=== PATIENT | male | born 1965 | race African-American/Black ===

== ENCOUNTER 2019-03-28 08:00 | Inpatient (IN) | payer OTHER ==
[2019-03-26 13:58] VITALS: BMI 32.6
--- NOTE | 2019-04-22 11:21 | HP ---
CHIEF COMPLAINT: low back pain PCP:Dr. Nino HISTORY OF PRESENT ILLNESS: Patient is a 53 year old male with past medical history of HTN and sickle cell trait, presented due to chronic low back pain. As per patient, he started experiencing low back pain since he felt a "pop" in his lower back at work in 1998 and 2003. Since then, patient experienced intermittent low back pain, that usually resolves on its own without any medication. Five months ago, patient started experiencing worsening of his low back pain, with pain radiating down to his left leg. At other times, patient would experience numbness of the left leg. The pain became more severe and frequent that patient had difficulty ambulating for prolonged times. He was evaluated by neurosurgery, Dr. Finch, where imaging was done. Patient was seen by Dr. Nino for pre-op clearance in March, and patient is scheduled for surgery on 05/02/2019. Patient denies any recent illness. Denies fevers, chills, headache, dizziness, chest pain, SOB, abdominal pain, diarrhea, urinary symptoms. Recent Travel:denies PAST MEDICAL HISTORY: Hypertension Sickle cell trait PAST SURGICAL HISTORY: Cleft palate repair Social History: Smokin/2 ppd x >20 years Alcohol:denies Drugs: denies Family History: Father - of heart attack at 52yo Mother - at 36yo - ?TB/pneumonia, ?HIV Allergies banana Allergy (Verified 03/26/19 14:02) No Known Drug Allergies Allergy (Verified 03/26/19 14:02) HOME MEDICATIONS: Home Medications Medication Instructions Recorded Amlodipine Besylate 10 mg PO HS 03/26/19 REVIEW OF SYSTEMS CONSTITUTIONAL: Absent: fever, chills, diaphoresis, generalized weakness, malaise, loss of appetite, weight change HEENT: Absent: rhinorrhea, nasal congestion, throat pain, throat swelling, difficulty swallowing, mouth swelling, ear pain, eye pain, visual changes CARDIOVASCULAR: Absent: chest pain, syncope, palpitations, irregular heart rate, lightheadedness, peripheral edema RESPIRATORY: Absent: cough, shortness of breath, dyspnea with exertion, orthopnea, wheezing, stridor, hemoptysis GASTROINTESTINAL: Absent: abdominal pain, abdominal distension, nausea, vomiting, diarrhea, constipation, melena, hematochezia GENITOURINARY: Absent: dysuria, frequency, urgency, hesitancy, hematuria, flank pain, genital pain MUSCULOSKELETAL: Low back pain Absent: myalgia, arthralgia, joint swelling, neck pain SKIN: Absent: rash, itching, pallor HEMATOLOGIC/IMMUNOLOGIC: Absent: easy bleeding, easy bruising, lymphadenopathy, frequent infections ENDOCRINE: Absent: unexplained weight gain, unexplained weight loss, heat intolerance, cold intolerance NEUROLOGIC: numbness/pain of left leg Absent: headache, focal weakness or paresthesias, dizziness, unsteady gait, seizure, mental status changes, bladder or bowel incontinence PSYCHIATRIC: Absent: anxiety, depression, suicidal or homicidal ideation, hallucinations. PHYSICAL EXAMINATION GENERAL: Awake, alert, and fully oriented, in no acute distress. HEAD: Normal with no signs of trauma. EYES: PERRLA, EOMI, sclera anicteric, conjunctiva clear. EARS, NOSE, THROAT: Moist mucous membranes. NECK: Normal range of motion, supple LUNGS: Breath sounds equal, clear to auscultation bilaterally. HEART: Regular rate and rhythm, normal S1 and S2 ABDOMEN: Soft, nontender, not distended, normoactive bowel sounds. MUSCULOSKELETAL: Normal range of motion at all joints. LOWER EXTREMITIES: 2+ pulses, warm, well-perfused. No peripheral edema. NEUROLOGICAL: Cranial nerves II-XII grossly intact. Normal speech. Motor strength 5/5 on b/l UE,RLE, 4/5 LLE, decreased sensation on LLE>RLE. PSYCHIATRIC: Cooperative. Good eye contact. Appropriate mood and affect. SKIN: Warm, dry, normal turgor. ASSESSMENT/PLAN: Patient is a 53 year old male with past medical history of HTN and sickle cell trait, presented due to chronic low back pain. #Chronic Low Back pain -likely 2/2 Lumbar spondylosis -Scheduled for surgery on 05/02/2019 -Neurosurgery (Dr. Finch) on board #Dispo -to come back to [facility] for surgery Visit type - Emergency Visit Emergency Visit: No - New Patient This patient is new to me today: Yes Date on this admission: 04/22/19 - Critical Care Critical Care patient: No ATTENDING PHYSICIAN STATEMENT I saw and evaluated the patient. I reviewed the resident's note and discussed the case with the resident. I agree with the resident's findings and plan as documented. SUBJECTIVE: OBJECTIVE: ASSESSMENT AND PLAN:
[2019-05-02] MEDS ORDERED: ceFAZolin SODIUM 1 GM VIAL ONE ×2 (06:55→16:49)
[2019-05-02] MEDS ORDERED: CEFAZOLIN 2 GM/D5W 2 GM/50 ML ML IVPB ONE (07:00)
[2019-05-02] MEDS ORDERED: MIDAZOLAM HCL 2 MG/2 ML SINGLE DOSE VIAL ONE (07:44)
[2019-05-02] MEDS ORDERED: ROCURONIUM BROMIDE 50 MG/5 ML SYRINGE ONE ×2 (07:44→08:59)
[2019-05-02] MEDS ORDERED: morphine SULFATE/PF 0.5 MG/ML (2cc Syringe - QUVA) ONE (07:44)
[2019-05-02] MEDS ORDERED: PROPOFOL 20 ML ONE (07:44)
[2019-05-02] MEDS ORDERED: LIDOCAINE HCL/PF 2% SDV 5ML VIAL ONE (07:45)
--- NOTE | 2019-05-02 07:52 | HP ---
History & Physical Update - History History: No Change - Physical Physical: No Change - Assessment Assessment: No Change - Plan Plan: No Change
[2019-05-02] MEDS ORDERED: SODIUM CHLORIDE 0.9% P/F 10 ML VIAL IJ ONE ×2 (08:19→08:24)
[2019-05-02] MEDS ORDERED: DEXAMETHASONE SOD PHOSPHATE 4 MG/1 ML VIAL ONE (08:19)
[2019-05-02] MEDS ORDERED: ONDANSETRON 4 MG/2 ML VIAL ONE (08:19)
[2019-05-02] MEDS ORDERED: ceFAZolin SODIUM 1 GM VIAL IVPB ONE (08:23)
[2019-05-02] MEDS ORDERED: VANCOMYCIN 1,000 MG VIAL (RESTRICTED TO ID ONLY) ONE (08:23)
[2019-05-02] MEDS ORDERED: VANCOMYCIN 1,000 MG VIAL (RESTRICTED TO ID ONLY) IVPB ONE ×3 (08:25→10:57)
[2019-05-02] MEDS ORDERED: LIDOCAINE 1%/EPI 1:100000 (20 ML MULTI DOSE VIAL) IJ ONE (08:33)
[2019-05-02] MEDS ORDERED: GELATIN, ABSORBABLE 100 EACH SPONGE TP ONE (08:53)
[2019-05-02] MEDS ORDERED: THROMBIN (BOVINE) 5,000 UNIT VIAL TP ONE (08:53)
[2019-05-02] MEDS ORDERED: GENTAMICIN SO4 80 MG/2 ML VIAL IVPB ONE (09:19)
[2019-05-02] MEDS ORDERED: HYDROGEN PEROXIDE 473 ML PO ONE (09:19)
[2019-05-02] MEDS ORDERED: BACITRACIN 50,000 UNITS VIAL TP ONE ×3 (09:19→10:57)
[2019-05-02] MEDS ORDERED: GLYCOPYRROLATE 0.2 MG/1 ML VIAL ONE (10:25)
[2019-05-02] MEDS ORDERED: NEOSTIGMINE METHYLSULFATE 0.5 MG/1 ML - 10 ML MDV ONE (10:25)
[2019-05-02] MEDS ORDERED: BUPIVACAINE LIPOSOME/PF (EXPAREL) 266 MG/20 ML VIAL NR ONE ×2 (10:50)
[2019-05-02] MEDS ORDERED: BUPIVACAINE HCL/PF 0.5% (5 MG/ML) 30 ML VIAL IJ ONE ×2 (10:50)
[2019-05-02] MEDS ORDERED: ACETAMINOPHEN INJECTION 100 ML IVPB ONE (11:19)
[2019-05-02] MEDS ORDERED: METOPROLOL TARTRATE 5 MG/5 ML VIAL ONE (11:28)
[2019-05-02] MEDS ORDERED: morphine SULFATE/PF 0.5 MG/ML (2cc Syringe - QUVA) EP ONE (12:03)
[2019-05-02] MEDS ORDERED: ONDANSETRON 4 MG/2 ML VIAL IVPUSH PRN ×2 (12:03→12:08)
[2019-05-02] MEDS ORDERED: PROMETHAZINE HCL 25 MG/1 ML VIAL IVPB PRN (12:03)
[2019-05-02] MEDS ORDERED: DEXAMETHASONE SOD PHOSPHATE 4 MG/1 ML VIAL IVPUSH PRN (12:03)
[2019-05-02] MEDS ORDERED: LACTATED RINGERS SOLUTION 1,000 ML IV SCH (12:15)
[2019-05-02] MEDS ORDERED: HYDROmorphone *PCA* 10MG/50ML DISP.SYRIN PCA SCH (12:15)
[2019-05-02] MEDS ORDERED: HEPARIN NA (PORCINE) 5,000 UNITS/ML 1ML VIAL SQ SCH (12:15)
--- NOTE | 2019-05-02 12:24 | OP ---
Operative Note - Note: Operative Date: 05/02/19 Pre-Operative Diagnosis: lumbar stenosis, lumbar kyphosis Operation: lumbar L2 thru L3 and L3 thru L4 laminectomy/decompression transforaminal approach. Interbody CAGE placement L2-3 and L3-4, arthrodesis and posterior lumbar fusion Surgeon: Huy Finch Guidance Director: Susan Ferreira Anesthesiologist/EMPLOYMENT SPECIALIST: Constantin Barrios Estimated Blood Loss (mls): 110 Drains, Volume Out (mls): 180 (melgoza) Fluid Volume Replaced (mls): 1,500 Operative Report Dictated: Yes
[2019-05-02] MEDS ORDERED: CEFAZOLIN 1 GM in DEXTROSE 5%-WATER - 50 ML IVPB SCH (12:45)
[2019-05-02] MEDS ORDERED: HYDROmorphone *PCA* 10MG/50ML DISP.SYRIN ONE (12:53)
[2019-05-02] MEDS: DOCUSATE SODIUM 100 MG CAPSULE (FP) PO SCH ×2 (16:31→21:41)
[2019-05-02] MEDS: LACTATED RINGERS SOLUTION 1,000 ML/1,000 ML INFUS.BAG IV SCH (16:31)
[2019-05-02] MEDS: ACETAMINOPHEN 1000 MG/100 ML VIAL (NON FORMULARY) IVPB SCH ×2 (16:31→23:21)
[2019-05-02] MEDS ORDERED: DEXTROSE 5%-WATER - 50 ML IVPB ONE (16:49)
[2019-05-02] MEDS: CEFAZOLIN 1 GM in DEXTROSE 5%-WATER - 50 ML IVPB SCH (16:53)
[2019-05-02] MEDS ORDERED: CEFAZOLIN 1 GM/D5W 1 GM/50 ML BAG IVPB SCH (17:00)
[2019-05-02] MEDS: HEPARIN NA (PORCINE) 5,000 UNITS/ML 1ML VIAL SQ SCH (21:41)
[2019-05-02] MEDS ORDERED: amLODIPine BESYLATE 10 MG TABLET (FP) PO SCH (22:00)
[2019-05-03] MEDS ORDERED: DEXTROSE 5%-WATER - 50 ML IVPB ONE ×2 (01:39→10:50)
[2019-05-03] MEDS ORDERED: ceFAZolin SODIUM 1 GM VIAL ONE ×2 (01:39→10:50)
[2019-05-03] MEDS: CEFAZOLIN 1 GM in DEXTROSE 5%-WATER - 50 ML IVPB SCH ×2 (01:57→10:52)
[2019-05-03 05:37] VITALS: TEMP 98.5
[2019-05-03] MEDS: ACETAMINOPHEN 1000 MG/100 ML VIAL (NON FORMULARY) IVPB SCH (05:44)
[2019-05-03] MEDS: HEPARIN NA (PORCINE) 5,000 UNITS/ML 1ML VIAL SQ SCH ×2 (05:44→15:33)
[2019-05-03] MEDS: DOCUSATE SODIUM 100 MG CAPSULE (FP) PO SCH ×2 (05:45→15:33)
[2019-05-03 08:03] LABS: HEMATOCRIT 34.6 % (35.4-49); HEMOGLOBIN 12.2 GM/dL (11.7-16.9); MCH 30.2 pg (25.7-33.7); MCHC 35.2 g/dl (32.0-35.9); MEAN CELL VOLUME 85.7 fl (80-96); MEAN PLT VOLUME 8.6 fl (7.5-11.1); PLATELET COUNT 169 K/MM3 (134-434); RBC 4.03 M/mm3 (4.00-5.60); RDW 14.1 % (11.9-15.9); WHITE BLOOD COUNT 9.5 K/mm3 (4.0-10.0)
[2019-05-03 08:23] LABS: CREATININE 0.7 mg/dL (0.55-1.3); POTASSIUM 3.8 mmol/L (3.5-5.1)
[2019-05-03] MEDS ORDERED: FOLIC ACID 1 MG TABLET (FP) PO SCH (10:00)
--- NOTE | 2019-05-03 10:03 | PN ---
Progress Note, Physician Chief Complaint: Lumbar Spondylosis History of Present Illness: Previous notes and events reviewed awake and alert NAD no complaints of pain verbalized complain of intermittent numbness to bilateral upper thigh IDALMIS drain noted with sanguinous output - Current Medication List Current Medications: Active Medications Acetaminophen (Tylenol -) 650 mg PO Q6H PRN PRN Reason: PAIN LEVEL 1-5 Amlodipine Besylate (Norvasc -) 10 mg PO HS [facility] Last Admin: 05/02/19 21:41 Dose: 10 mg Documented by: Dexamethasone Sodium Phosphate (Decadron Injection -) 4 mg IVPUSH ONCE PRN PRN Reason: NAUSEA AND/OR VOMITING Diphenhydramine HCl (Benadryl Injection -) 12.5 mg IVPUSH ONCE PRN PRN Reason: FOR ITCHING Diphenhydramine HCl (Benadryl Injection -) 25 mg IVPUSH Q4H PRN PRN Reason: Pruritis Docusate Sodium (Colace -) 100 mg PO TID [facility] Last Admin: 05/03/19 05:45 Dose: 100 mg Documented by: Folic Acid (Folic Acid -) 1 mg PO DAILY [facility] Heparin Sodium (Porcine) (Heparin -) 5,000 unit SQ TID [facility] Last Admin: 05/03/19 05:44 Dose: 5,000 unit Documented by: Hydromorphone HCl (Hydromorphone 10 Mg/50 Ml-Ns) 10 mg PROFILE SAW OPERATOR PROFILE SAW OPERATOR [facility]; Protocol Stop: 05/09/19 12:03 Last Admin: 05/02/19 13:00 Dose: 10 mg Documented by: Lactated Ringer's (Lactated Ringers Solution) 1,000 mls @ 125 mls/hr IV ASDIR [facility] Last Admin: 05/02/19 16:30 Dose: 125 mls/hr Documented by: Lactated Ringer's (Lactated Ringers Solution) 1,000 ml in 1,000 mls @ 125 mls/hr IV ASDIR [facility] Last Admin: 05/02/19 16:31 Dose: Not Given Documented by: Cefazolin Sodium 1 gm/ (Dextrose) 50 mls @ 100 mls/hr IVPB Q8H [facility] Stop: 05/03/19 16:59 Last Admin: 05/03/19 01:57 Dose: 100 mls/hr Documented by: Ondansetron HCl (Zofran Injection) 4 mg IVPUSH Q4H PRN PRN Reason: NAUSEA AND/OR VOMITING Ondansetron HCl (Zofran Injection) 4 mg IVPUSH Q6H PRN PRN Reason: NAUSEA Promethazine HCl (Phenergan Injection -) 12.5 mg IVPB Q6H PRN PRN Reason: NAUSEA AND/OR VOMITING - Objective Vital Signs: Vital Signs Temperature 98.5 F 05/03/19 05:25 Pulse Rate 61 05/03/19 05:25 Respiratory Rate 18 05/03/19 05:25 Blood Pressure 135/85 05/03/19 05:25 O2 Sat by Pulse Oximetry (%) 97 05/02/19 21:00 Constitutional: Yes: No Distress, Calm Eyes: Yes: Conjunctiva Clear HENT: Yes: Atraumatic Cardiovascular: Yes: Regular Rate and Rhythm Respiratory: Yes: Regular, CTA Bilaterally Gastrointestinal: Yes: Normal Bowel Sounds, Soft Genitourinary: Yes: Peguero Present Musculoskeletal: Yes: Muscle Weakness Extremities: Yes: WNL Edema: No Wound/Incision: Yes: Dressing Dry and Intact Neurological: Yes: Alert, Oriented Psychiatric: Yes: Alert, Oriented Labs: CBC, BMP 05/03/19 07:08 05/03/19 07:08 Problem List - Problems (1) Lumbar spondylosis Assessment/Plan: Neurosurgery on board Cefazolin pain control Incentive spirometer SCDs PT Lumbar CT spine shows s/p posterior fusion L2-L4 in satisfactory alignment with posterior post-op changes POD #1 Posterior fusion L2-L4 Code(s): M47.816 - SPONDYLOSIS W/O MYELOPATHY OR RADICULOPATHY, LUMBAR REGION (2) HTN (hypertension) Assessment/Plan: Amlodipine low Na diet when diet advanced Code(s): I10 - ESSENTIAL (PRIMARY) HYPERTENSION
[2019-05-03] MEDS ORDERED: ACETAMINOPHEN 325 MG TABLET (FP) PO PRN (11:00)
[2019-05-03] MEDS: LACTATED RINGERS SOLUTION 1,000 ML/1,000 ML INFUS.BAG IV SCH (13:41)
--- NOTE | 2019-05-03 15:13 | PN ---
Progress Note (short form) - Note Progress Note: POD#1 PT had no pain overnight. No nausea or emesis, tolerated celars and passed faltus. No headaches, CP or SOB. Ambulated today with PT. Vital Signs Period Temp Pulse Resp BP Sys/Diaz Pulse Ox Last 24 Hr 97.3 F-98.5 F 59-78 18-20 118-142/70-85 95-97 IDALMIS: 110ml serosangrenous GEN: A&0x3, NAD Back: small amount of dried blood on the dressing. Removed today, small amount of skin peeled away with dressing removal(approx 1 cm in length) Inc c/d/i. IDALMIS removed with the tip intact. Reapplied 4x4 gauze dressing with paper tape. CBC, BMP 03// 07:08 03// 07:08 A/P: 53 yo male s/p L2 thru L4 lumbar lamiectomy, fusion, POD#1 Peguero removed for TOV Idalmis removed today OOB and ambulate, TLSO brace Discharge instructions/scripts completed. Pt has walker and list of outpt PT numbers May be discharged once he urinates, has TLSO brace D/w Dr. Bloom
--- NOTE | 2019-05-03 15:32 | PN ---
Progress Note, Physician Chief Complaint: s/p lumbar decompressoin and fusion under general anesthesia History of Present Illness: post op day one, intrathecal duramorph and dilaudid mail carrier for post op pain control. - Current Medication List Current Medications: Active Medications Acetaminophen (Tylenol -) 650 mg PO Q6H PRN PRN Reason: PAIN LEVEL 1-5 Amlodipine Besylate (Norvasc -) 10 mg PO HS [facility] Last Admin: 05/02/19 21:41 Dose: 10 mg Documented by: Dexamethasone Sodium Phosphate (Decadron Injection -) 4 mg IVPUSH ONCE PRN PRN Reason: NAUSEA AND/OR VOMITING Diphenhydramine HCl (Benadryl Injection -) 12.5 mg IVPUSH ONCE PRN PRN Reason: FOR ITCHING Diphenhydramine HCl (Benadryl Injection -) 25 mg IVPUSH Q4H PRN PRN Reason: Pruritis Docusate Sodium (Colace -) 100 mg PO TID [facility] Last Admin: 05/03/19 05:45 Dose: 100 mg Documented by: Folic Acid (Folic Acid -) 1 mg PO DAILY [facility] Last Admin: 05/03/19 10:53 Dose: 1 mg Documented by: Heparin Sodium (Porcine) (Heparin -) 5,000 unit SQ TID [facility] Last Admin: 05/03/19 05:44 Dose: 5,000 unit Documented by: Lactated Ringer's (Lactated Ringers Solution) 1,000 ml in 1,000 mls @ 125 mls/hr IV ASDIR [facility] Last Admin: 05/03/19 13:41 Dose: Not Given Documented by: Cefazolin Sodium 1 gm/ (Dextrose) 50 mls @ 100 mls/hr IVPB Q8H [facility] Stop: 05/03/19 16:59 Last Admin: 05/03/19 10:52 Dose: 100 mls/hr Documented by: Ondansetron HCl (Zofran Injection) 4 mg IVPUSH Q4H PRN PRN Reason: NAUSEA AND/OR VOMITING Ondansetron HCl (Zofran Injection) 4 mg IVPUSH Q6H PRN PRN Reason: NAUSEA Promethazine HCl (Phenergan Injection -) 12.5 mg IVPB Q6H PRN PRN Reason: NAUSEA AND/OR VOMITING - Objective Vital Signs: Vital Signs Temperature 98.5 F 05/03/19 05:25 Pulse Rate 61 05/03/19 05:25 Respiratory Rate 18 05/03/19 05:25 Blood Pressure 135/85 05/03/19 05:25 O2 Sat by Pulse Oximetry (%) 97 05/02/19 21:00 Constitutional: Yes: Well Nourished Cardiovascular: Yes: WNL Respiratory: Yes: WNL Gastrointestinal: Yes: WNL Labs: CBC, BMP 05/03/19 07:08 05/03/19 07:08 Assessment/Plan Pain controlled, pt. tolerating po, will dc mail carrier and convert to po pain medications. otherwise dept of anesthesia will sign off care at this time
[2019-05-03] MEDS ORDERED: oxyCODONE HCL 5 MG TABLET PO PRN ×2 (15:33)
[2019-05-03 16:07] VITALS: BP 125/70; PULSE 72
== END 2019-05-03 18:28 | disposition home or self-care (01) | DRG 304 ==
LOC: JSAMEDAYSX 05-02 05:14 → J4W 05-02 14:58
PROVIDERS: ADMIT Family Medicine; ATTEND Family Medicine
PROC: 0SG1071 Fusion of 2 or more Lumbar Vertebral Joints with Autologous Tissue Substitute, Posterior Approach, Posterior Column, Open Approach (ICD-10-PCS; 2019-05-02)
PROC: 0QB00ZZ Excision of Lumbar Vertebra, Open Approach (ICD-10-PCS; 2019-05-02)
PROC: 0JR707Z Replacement of Back Subcutaneous Tissue and Fascia with Autologous Tissue Substitute, Open Approach (ICD-10-PCS; 2019-05-02)
PROC: 0SG10AJ Fusion of 2 or more Lumbar Vertebral Joints with Interbody Fusion Device, Posterior Approach, Anterior Column, Open Approach (ICD-10-PCS; principal; 2019-05-02 08:00)
DX: M47.816 Spondylosis without myelopathy or radiculopathy, lumbar region (principal); M48.061 Spinal stenosis, lumbar region without neurogenic claudication; I10 Essential (primary) hypertension; D57.3 Sickle-cell trait; M40.299 Other kyphosis, site unspecified
CPT/HCPCS: 36415; 72131-TC; 76000-TC-FY; 80048; 85027; 86850; 86900; 86901; 94760; 97116-GP; 97161-GP; J0131; J1644